=== PATIENT | female | born 2000 | race Caucasian/White ===

== ENCOUNTER 2019-02-21 17:51 | Emergency (ER) | payer OTHER ==
[2019-02-21 18:11] VITALS: BP 119/77
[2019-02-21] MEDS ORDERED: predniSONE 20 MG TABLET PO STA (18:59)
--- NOTE | 2019-02-21 19:02 | ED Physician Documentation ---
History of Present Illness - Stated complaint Stated Complaint: R HAND SWOLLEN/L KNEE BRUISING - Chief complaint Chief Complaint: General - History obtained from History obtained from: Patient - History of Present Illness Timing: Other (This is a young woman who has 2 complaints, stating that a week ago after heavy housekeeping, she developed pain and swelling of her right hand. There is no specific injury other than overuse. There is no numbness or tingling. She also notes a bruise, without specific recollected trauma on the outside of the left leg. No possibility of .) Review of Systems Constitutional: denies: Fever, Chills Cardiac: denies: Chest pain / pressure, Palpitations Respiratory: denies: Dyspnea, Cough GI: denies: Abdominal Pain, Nausea, Vomiting PD PAST MEDICAL HISTORY - Present Medications Home Medications: Ambulatory Orders Medication Instructions Recorded Confirmed DULoxetine [Cymbalta] mg PO DAILY 02/21/19 Dextroamphetamine/Amphetamine 4 mg ORAL DAILY 02/21/19 02/21/19 [Adderall 10 mg Tablet] Diazepam [Valium] 5 mg PO DAILY 02/21/19 02/21/19 Famotidine [Pepcid] 20 mg PO ONCE 02/21/19 02/21/19 predniSONE [Deltasone] 60 mg PO DAILY 5 Days #15 tablet 02/21/19 raNITIdine [Zantac] 150 mg PO DAILY 02/21/19 02/21/19 traZODone [Desyrel] 12.5 mg PO ONCE 02/21/19 02/21/19 - Allergies Allergies/Adverse Reactions: Allergies Allergy/AdvReac Type Severity Reaction Status Date / Time amoxicillin Allergy Rash Verified 02/21/19 18:09 - Social History Does the pt smoke?: No Smoking Status: Never smoker PD ED PE NORMAL - Vitals Vital signs reviewed: Yes - General General: Alert and oriented X 3, No acute distress - Extremities Extremities: Other (Mild diffuse swelling of the right hand without any tenderness or limited range of motion. No warmth or redness. There is some spotty bruising on the left posterior lateral hamstring without tenderness or limited range of motion, no ligamentous laxity of the knee. No calf swelling or tenderness.) - Neuro Neuro: Alert and oriented X 3, Normal speech Results - Vitals Vitals: Vital Signs - 24 hr 02/21/19 18:07 Temperature 36.8 C Heart Rate 90 Respiratory 18 Rate Blood Pressure 119/77 O2 Saturation 100 Oxygen O2 Source Room air PD MEDICAL DECISION MAKING - ED course ED course: This is a young woman who has a bruise on her leg, nothing concerning for DVT or other serious etiology. She also has some swelling of the right hand. More likely overuse and less likely autoimmune. Placed in a wrist splint and encouraged rest and elevation and will trial some steroids pending follow-up. Departure - Departure Disposition: 01 Home, Self Care Clinical Impression: Swelling of right hand Condition: Good Record reviewed to determine appropriate education?: Yes Instructions: ED Contusion Hand Prescriptions: predniSONE [Deltasone] 60 mg PO DAILY 5 Days #15 tablet Comments: Try to rest the hand is much as possible, elevate it. If you are not improving. Follow-up with your doctor, consider rheumatologic work-up. Return for new or worsening symptoms.
== END 2019-02-21 19:14 | disposition home or self-care (01) ==
LOC: ED 17:51
DX: M79.89 Other specified soft tissue disorders (principal)
CPT/HCPCS: 99282; 99283; J7512